=== PATIENT | female | born 1965 | race Caucasian/White ===

== ENCOUNTER 2018-04-06 14:49 | Outpatient (CLI) | payer OTHER ==
--- NOTE | 2018-04-06 21:58 | Ultrasound Report ---
Reason: ESSENTIAL HYPERTENSION Procedure Date: 04/06/2018 Accession Number: [id number] / [id number] Procedure: US - Retroperitoneal CPT Code: FULL RESULT: EXAM: RENAL ULTRASOUND EXAM DATE: 04/06/2018 04:00 PM. CLINICAL HISTORY: ESSENTIAL HYPERTENSION. COMPARISON: None. TECHNIQUE: Real-time scanning was performed with static images obtained. FINDINGS: Right Kidney: 9.9 x 5.4 x 4.3 cm. Normal echotexture with no stones, contour-deforming masses, or hydronephrosis. Left Kidney: 13.5 x 5.4 x 4.5 cm. Normal echotexture with no stones, contour-deforming masses, or hydronephrosis. Bladder: Bilateral jets seen. The prevoid bladder volume was 755 cc. The postvoid bladder volume was 52 cc. Other: None. IMPRESSION: Unremarkable renal ultrasound. [facility]
== END 2018-04-06 14:50 | disposition home or self-care (01) ==
LOC: DI 14:49
PROVIDERS: ATTEND Nurse Practitioner
DX: I10 Essential (primary) hypertension (principal)
CPT/HCPCS: 76770

== ENCOUNTER 2023-04-08 13:44 | Outpatient (CLI) | payer OTHER ==
[2023-04-08 20:24] LABS: THYROID STIMULATING HORMONE 1.16 uIU/mL (0.34-5.60)
[2023-04-08 20:30] LABS: FERRITIN 92.4 ng/mL (11.0-306.8)
== END 2023-04-08 13:45 | disposition home or self-care (01) ==
LOC: LAB.S 13:44
DX: L65.0 Telogen effluvium (principal)
CPT/HCPCS: 36415; 82306; 82607; 82728; 83540; 84443; 84466